=== PATIENT | male | born 1955 | race Caucasian/White ===

== ENCOUNTER → 2018-05-01 13:34 | Outpatient (CLI) | payer OTHER, SELFPAY ==
[2018-05-01 14:23] LABS: Uric Acid 8.3 mg/dL (3.5-8.5)
[2018-05-01 14:24] LABS: C-Reactive Protein Quant < 0.5 mg/dL (<1.0); Rheumatoid Factor < 8.6 IU/mL (<12.0)
[2018-05-01 14:29] LABS: Erythrocyte Sedimentation Rate 5 MM/HR (0-15)
[2018-05-04 11:38] LABS: HLA B27 NEGATIVE (Negative)
[2018-05-05 18:39] LABS: ANA Screen, IFA Negative (Negative)
== END ==
PROVIDERS: PCP Family Medicine; Visit Provider Podiatrist
DX: S93.601A Unspecified sprain of right foot, initial encounter (principal)
CPT/HCPCS: 36415; 84550; 85651; 86038; 86140; 86430; 86812

== ENCOUNTER 2019-07-28 07:39 | Day surgery (SDC) | payer MEDICARE, OTHER, SELFPAY ==
--- NOTE | 2019-07-27 19:35 | PM.PREOP ---
Pre-operative Note Interval Note History & Physical reviewed/Exam performed by Physician: Yes Changes to H&P: No
--- NOTE | 2019-07-28 07:25 | PM.OP.1 ---
Operative Date/Time/Diagnoses Date of procedure: 07/28/19 Time of procedure: 08:45 Procedure & Clinicians Procedure: Preoperative diagnoses: 1. Right complex surgery with ppossible use of capsular dye. 2. Mature or advanced nuclear sclerotic and cortical cataract with poor visibility of the anterior capsule increasing surgical risks of complications. Postoperative diagnoses: 1. Complex surgery without use of capsular dye, [2. Placement of a posterior chamber intraocular lens implant.] 3. Previous retinal detachment. 4. Previous posteriorvitrectomy. 5. hypertension Surgeon: Layla Vega MD Complications: none Specimen: None Implant: +16.5 Blood loss: None Anesthesia: Retrobulbar with monitored standby. Description of procedure: Dictated by: Layla Vega MD Post operative diagnoses: 1. Right cataract removed with phacoemulsification and placement of a posterior chamber intraocular lens. Procedure: Phacoemulsification with posterior chamber intraocular lens implant Surgeon: Layla Vega MD Blood loss: None Anesthesia: Retrobulbar with monitored standby Description of procedure: Patient has presented with decreased vision due to cataract which is affecting activities of daily living. has advanced cataract which formed rapidly after posterior vitrectomy for complicated retinal detachment with macula off status. He has high-risk characteristics for complications and may need capsular dye. The patient wants surgery to improve vision. The patient was taken to the operating room and given IV sedation. A retrobulbar block consisting of 6 cc of 2% xylocaine without epinephrine mixed half and half with 0.5% Marcaine with 1 cc of hyaluronidase added is placed between the medial and lateral 1/3 of the inferior orbital rim. Lid akinesia is obtain with 1% xylocaine with epinephrine infiltrated along the lid margin. The eye is manually massaged for 30 sec, prepped using Betadine solution, and draped in the usual sterile fashion. Temporal approach was made, a 1 mm side-port incision was performed 90 degrees from the planned corneal wound. Phenylephrine 1.5% mixed with 1% xylocaine 0.2 cc was placed into the anterior chamber. No capsular dye was needed.Viscoat followed by Allison was then placed. A 2.6 mm clear incision with a 2.6 mm blade was placed. A 360 degree capsulorrhexis style capsulotomy was then performed with a cystitome needle on a Healon. Hydrodelineation and hydrodissection were performed. The phacoemulsification unit is introduced, and sculpting used to groove the central lens. It is then removed in chopping mode. Epi nucleus is removed with epinuclear mode and irrigation aspiration was used to remove the peripheral cortex. The posterior capsule is polished. The intraocular lens is selected, inspected, power confirmed, and placed in the posterior chamber. The pupil was constricted with Miostat. The wound was stromally hydrated and tested for leaks, there was none and was left sutureless. Vigamox 0.1 cc was placed into the anterior chamber. Kenalog 0.2 cc was placed in the superior subconjunctival space. A drop of antibiotic and was placed and the eye was patched and shielded. The patient was stable and returned to the recovery room in excellent condition. Dictated by: Layla Vega MD Copy to: [facility]
[2019-07-28] MEDS: PROPARACAINE 0.5% OPHTH SOL 2 DROPS EYE-OP (08:08)
[2019-07-28] MEDS: CATARACT EYE COMPOUND (10 DROPS/SYRINGE) 3 DROPS EYE-OP ×2 (08:11→08:16)
[2019-07-28 08:13] VITALS: BP 137/96; PULSE 60; RESP 14; TEMP 36.3; O2SAT 98
[2019-07-28 08:23] VITALS: BMI 26.0
[2019-07-28] MEDS: MOXIFLOXACIN INJ 5 MG/ML VIAL EYE-OP (09:36)
[2019-07-28] MEDS: PHENYLEPHRINE/LIDOCAINE VIAL (OR) 0.2 ML EYE-OP (09:36)
[2019-07-28] MEDS: CHONDROIDTIN/SOD HYALURONATE 1.05 ML SYRINGE INTRAOCULA (09:37)
[2019-07-28] MEDS: TRIAMCINOLONE 50 MG/5 ML VIAL INJ (09:37)
[2019-07-28] MEDS: HYALURONATE SODIUM 10 MG/ML SYRINGE INJ (09:38)
[2019-07-28] MEDS: LIDOCAINE 2% 4 ML, BUPIVACAINE 0.5% (PF) 4 ML, HYALURONIDASE 150 UNIT INJ (09:39)
[2019-07-28] MEDS: ERYTHROMYCIN OPHTH 1 GM OINT 1 APPLIC EYE-RIGHT (09:39)
[2019-07-28] MEDS: BALANCED SALT IRRIG SOLN NO.2 500 ML, EPINEPHrine 1 MG IRR (09:40)
[2019-07-28 10:05] VITALS: BP 151/105; PULSE 62; RESP 15; TEMP 36.3; O2SAT 99
--- NOTE | 2019-07-28 11:09 | SUR.PHASEII ---
1006 late entry BP/VS shown to Dr. Corrales. She confirmed with the patient that he had not taken his BP med today. Since it is not that much higher than the pre-op level, she said that she was ok with him going home and taking his BP med. The discussion took place in front the patient and he acknowled hearing it.
== END 2019-07-28 10:16 | disposition home or self-care (01) ==
LOC: OR 07:40
PROVIDERS: Visit Provider Ophthalmology
PROC: (CPT 66984; principal; 2019-07-28 08:45)
DX: H25.811 Combined forms of age-related cataract, right eye (principal); I10 Essential (primary) hypertension
CPT/HCPCS: 66984; J0171; J2250; J2704; J3010; J3301; J3470

== ENCOUNTER 2019-10-04 15:44 | Emergency (ER) | payer MEDICARE, OTHER, SELFPAY ==
[2019-10-04 15:48] VITALS: BP 148/93; PULSE 74; RESP 20; TEMP 36.2; O2SAT 96
--- NOTE | 2019-10-04 17:23 | DI.CT.S_ITS ---
PROCEDURE: CT HEAD/BRAIN WO CON INDICATIONS: fall/head injury TECHNIQUE: Noncontrast 4.5 mm thick angled axial sections acquired from the foramen magnum to the vertex, with coronal and sagittal reformats. For radiation dose reduction, the following was used: automated exposure control, adjustment of mA and/or kV according to patient size. COMPARISON: None. FINDINGS: Image quality: Excellent. CSF spaces: Basal cisterns are patent. No extra-axial fluid collections. The ventricles are symmetric in size and shape. Brain: No intracranial bleeds or masses. There is cerebral volume loss for age, with resultant ventricular and sulcal prominence. There are periventricular and deep white matter chronic small vessel ischemic changes. There is intracranial internal carotid artery atherosclerosis. Skull and face: There is a scalp hematoma seen involving the right parietal region. No underlying calvarial fracture is seen. Calvarium and visualized facial bones appear intact, without suspicious lesions. Sinuses: Visualized sinuses and mastoids are clear. IMPRESSION: Right parietal scalp hematoma. No displaced calvarial fracture can be seen. No acute intracranial hemorrhage is seen. No acute intracranial process is seen. Dictated by: Johann Jean M.D. on 10/04/2019 at 17:06 Approved by: Johann Jean M.D. on 10/04/2019 at 17:07
[2019-10-04 17:41] LABS: Add Manual Diff / Slide Review NO; Basophils Absolute Auto 100 /uL (0-100); Basophils Percent Auto 0.4 % (0-2); Eosinophils Absolute Auto 0 /uL (0-450); Eosinophils Percent Auto 0.3 % (2-4); Hematocrit 41.7 % (41-53); Hemoglobin 14.6 g/dL (13.5-17.5); Lymphocytes Absolute Auto 1300 /uL (1100-4500); Lymphocytes Percent Auto 9.2 % (25-40); Mean Corpuscular Hemoglobin 31.6 PG (26-34); Mean Corpuscular Volume 90.2 fL (80-100); Monocytes Absolute Auto 900 /uL (0-900); Monocytes Percent Auto 6.2 % (3-14); Neutrophils Absolute Auto 12300 /uL (1500-7000); Neutrophils Percent Auto 83.9 % (50-75); Platelet Count 246 X10^3/uL (150-400); Red Blood Cell Count 4.62 X10^6/uL (4.5-5.9); Red Cell Distribution Width 13.1 % (11.6-14.8); White Blood Cell Count 14.7 X10^3/uL (4.5-11.0)
--- NOTE | 2019-10-04 17:46 | ED_ITS ---
HPI - Fall General Chief Complaint: Fall Stated Complaint: LACERATION TOP OF RIGHT SIDE OF HEAD THINKS BLACKE Time Seen by Provider: 10/04/19 16:24 Source: patient Mode of arrival: Ambulatory Limitations: no limitations History of Present Illness HPI Narrative: Patient comes emergency department complaining of headache and head injury after falling while coming down ladder today. Patient states he has had a ?sinus infection? for the last 10 days and he actually thought that he felt a little better today. He states that he had been doing some work in the attic of his garage was coming down the swelling down ladder when he believes he he feel dizzy and fell. Patient states he does not remember the incident exactly. He thinks he was about longterm down the ladder when he fell. He states that he believes he hit the concrete floor of his garage with his head and passed out. The patient states that when he woke up, he felt somewhat ?woozy? and had a headache. He noticed he had bleeding from the posterior right side of his head, as well. Patient states he has felt somewhat nauseated but did not vomit. His states that when she came home, she found a pool of blood on the garage floor and found the patient wandering aimlessly in the house. The patient seemed to be oriented, however. He denies any focal pain, other than his headache and a pain in the sacral area. No other injuries as far as patient can't. No focal neurologic deficits. Patient states he does not have any prior history of syncope. He states he generally strong and healthy and takes only lisinopril for blood pressure. He denies any chest pain or shortness of breath. No known cardiac issues. No other complaints at this time. Related Data Home Medications Medication Instructions Recorded Confirmed Cialis 1 tab PO PRN PRN 10/04/19 10/04/19 lisinopril 10 mg PO DAILY 10/04/19 10/04/19 Previous Rx's Medication Instructions Recorded hydrocodone-acetaminophen 1 tab PO Q4H PRN #20 tab 10/04/19 ondansetron 4 mg PO Q6H PRN #20 tab 10/04/19 Allergies Allergy/AdvReac Type Severity Reaction Status Date / Time amoxicillin [AMOXICILLIN] AdvReac Unknown GI distress Verified 07/28/19 08:06 Review of Systems Review of Systems ROS Unobtainable: All systems reviewed & are unremarkable except as noted in HPI and below Constitutional Constitutional: Denies chills, Denies fatigue, Denies fever(s), Denies frequent falls, Reports headache(s) (With scalp laceration), Denies lethargy and Denies weakness Eyes Eyes: Denies change in vision, Denies eye discharge, Denies irritation and Denies loss of vision ENT Ears, Nose, Mouth, and Throat: Denies change in voice, Denies dizziness, Reports headache(s) (With scalp laceration), Denies neck pain, Denies sore throat and Denies throat swelling Cardiovascular Cardiovascular: Denies chest pain, Denies irregular heart rhythm, Denies lightheadedness, Denies palpitations, Denies dyspnea, Denies dyspnea on exertion and Denies orthopnea Respiratory Respiratory: Denies cough, Denies dyspnea, Denies dyspnea on exertion and Denies wheezing Gastrointestinal Gastrointestinal: Denies abdominal pain, Denies change in bowel habits, Denies diarrhea, Reports nausea and Denies vomiting Genitourinary Genitourinary: Denies hematuria, Denies flank pain, Denies urinary incontinence and Denies urinary urgency Musculoskeletal Musculoskeletal: Denies back pain, Denies muscle weakness, Denies neck pain, Denies numbness and Denies tingling Integumentary/Breasts Skin/Breast: Denies pruritus, Denies erythema, Denies rash and Denies wounds Neurologic Neurologic: Denies behavioral changes, Denies confusion, Denies dizziness, Denies frequent falls, Reports headache(s) (With scalp laceration), Denies loss of vision, Denies numbness, Denies tingling and Denies weakness Psychiatric Psychiatric: Denies anxiety, Denies behavioral changes, Denies confusion, Denies depression, Denies homicidal ideation and Denies suicidal ideation Endocrine Endocrine: Denies fatigue, Denies flushing and Denies palpitations Hematologic/Lymphatic Hematologic/Lymphatic: Denies easy bruising Allergic/Immunologic Allergic/Immunologic: Denies urticaria, Denies throat swelling and Denies wheezing Patient History Medical History Hypertension (Acute) Surgical History (Updated 07/28/19 @ 08:02 by Melonie Hunter RN) H/O shoulder surgery (Acute) Social History household members: spouse Smoking Status: Never smoker alcohol intake: current Smoking Status: Never smoker alcohol intake frequency: 0-2 drinks per day Substance Use Type: does not use Exam Initial Vital Signs Initial Vital Signs: Vital Signs Temperature 97.2 F L 10/04/19 15:48 Pulse Rate 74 10/04/19 15:48 Respiratory Rate 20 10/04/19 15:48 Blood Pressure 148/93 H 10/04/19 15:48 Pulse Oximetry 96 10/04/19 15:48 Const General: cooperative and well developed Nutritional Appearance: well nourished Orientation: alert, awake, oriented x3 and not confused HENMT Head: normocephalic and hematoma (6 x 8 cm right parietal area, with 2 overlying lacerations.) Ears: external ears normal Nose: external nose normal and No nasal discharge Face and sinus: sinuses nontender, face symmetric, no sinus tenderness and No dry mucous membranes Mouth: oral mucosae normal and moist mucous membranes Teeth and gingiva: dentition normal Eyes General: appearance normal, both eyes and all related structures Eyelids: eyelids normal Conjunctivae: conjunctivae normal Sclera: sclerae normal Pupils: PERRL EOM: EOM intact bilaterally Neck Neck: normal visual inspection, trachea midline, No lymphadenopathy, No midline deformity and No JVD Lymphatic: No lymphedema Chest Chest: normal inspection of the chest Resp Effort & Inspection: normal respiratory effort, able to speak in complete sentences, no respiratory distress and no use of accessory muscles Auscultation: clear to auscultation bilaterally, no rales, no rhonchi and no wheezes Cardio Rate: regular rate Rhythm: regular rhythm Heart Sounds: no click, no gallops, no murmurs and no rubs Pulses: normal peripheral pulses GI Inspection: non-distended Palpation: soft, no hepatosplenomegaly, No guarding, No pulsatile mass and No tender Back/Spine/Pelvis Back: No CVA tenderness Cervical Spine: cervical ROM normal and No pain with cervical ROM Thoracic/Lumbar Spine: thoracic and lumbar spine normal to inspection Skin General: no rashes or lesions noted, No jaundice and No petechiae Other: Patient has 2 vertical lacerations overlying the scalp hematoma, as noted above. One is 3.5 cm in length and the other is 2 cm in length. Neuro General: alert, oriented x3, gait normal and no focal motor deficits Speech: speech normal Extrem General: full ROM, no clubbing, cyanosis or edema, no pedal edema and no calf tenderness Psych Appearance: well kempt Mental Status: mental status grossly normal Attitude: cooperative Thought Content: normal and suicidality Judgment: judgment good Procedures Laceration Repair Laceration 1: Site: scalp Side (If applicable): right Size (cm): 3.5 Description: irregular Depth: simple, single layer Local Anesthetic: lidocaine 2% Amount of anesthesia used (mL): 8 Pre-repair: wound explored, irrigated extensively and deep structures intact Skin layer closed with: cecelia Number of sutures: 9 Laceration 2: Site: scalp Side (If applicable): right Size (cm): 3.5 Description: irregular Depth: simple, single layer Local Anesthetic: lidocaine 2% Amount of anesthesia used (mL): 8 Pre-repair: wound explored, irrigated extensively and deep structures intact Skin layer closed with: cecelia Number of sutures: 9 Course Course Course Narrative: Patient was worked up with labs, EKG, and head CT. He was given a L of 0.9 normal saline and Zofran. Labs and CT were unremarkable, as was EKG. The patient's laceration was anesthetized and repaired, as above. Patient was found to be feeling somewhat better and I felt he was stable for discharge home. We've discussed home management of symptoms, as well as the usual indications for return. Orders Ordered: Discontinued Medications Hydromorphone HCl (Dilaudid) 0.5 mg IV NOW ONE Stop: 10/04/19 18:13 Last Admin: 10/04/19 18:16 Dose: 0.5 mg Documented by: SCANTYSON Sodium Chloride (Normal Saline 0.9%) 1,000 mls @ 1,000 mls/hr IV BOLUS ONE Stop: 10/04/19 18:22 Last Infusion: 10/04/19 19:36 Dose: 0 mls/hr Documented by: Admin: 10/04/19 18:16 Dose: 1,000 mls/hr Documented by: SCANTYSON Lidocaine/Epinephrine (Xylocaine 2% W/Epi) 20 ml INJ INTRA-OP ONE Stop: 10/04/19 18:09 Last Admin: 10/04/19 18:16 Dose: 20 ml Documented by: YOUNG Ondansetron HCl (Zofran) 4 mg IV NOW ONE Stop: 10/04/19 17:24 Last Admin: 10/04/19 18:16 Dose: 4 mg Documented by: YOUNG Vital Signs Vital signs: Vital Signs - 8 hr 10/04/19 15:48 Temperature 97.2 F L Pulse Rate 74 Respiratory Rate 20 Blood Pressure 148/93 H Pulse Oximetry 96 MDM - Fall Medical Records Attestation: I reviewed the patient's medical records. Lab Data Attestation: I reviewed the patient's lab results. Result diagrams: 10/04/19 17:35 10/04/19 17:35 Labs: Lab Results 10/04/19 10/04/19 10/04/19 Range/Units 17:35 17:35 17:35 WBC 14.7 H (4.5-11.0) X10^3/uL RBC 4.62 (4.5-5.9) X10^6/uL Hgb 14.6 (13.5-17.5) g/dL Hct 41.7 (41-53) % MCV 90.2 (80-100) fL MCH 31.6 (26-34) PG MCHC 35.0 (30-36) % RDW 13.1 (11.6-14.8) % Plt Count 246 (150-400) X10^3/uL Neut % (Auto) 83.9 H (50-75) % Lymph % (Auto) 9.2 L (25-40) % [place] % (Auto) 6.2 (3-14) % Eos % (Auto) 0.3 L (2-4) % Baso % (Auto) 0.4 (0-2) % Neut # (Auto) 45555 H (2191-1395) /uL Lymph # (Auto) 1300 (3391-6845) /uL [place] # (Auto) 900 (0-900) /uL Eos # (Auto) 0 (0-450) /uL Baso # (Auto) 100 (0-100) /uL PT 12.2 (10.1-12.7) SECONDS INR 1.1 (0.9-1.3) Sodium 138 (137-145) mmol/L Potassium 3.7 (3.4-5.1) mmol/L Chloride 104 (98-107) mmol/L Carbon Dioxide 27 (22-32) mmol/L BUN 16 (9-20) mg/dL Creatinine 1.00 (0.66-1.25) mg/dL Estimated GFR > 60.0 (>60) mL/min BUN/Creatinine Ratio 16.0 (6-22) Glucose 104 (80-110) mg/dL Calcium 9.4 (8.4-10.2) mg/dL Total Bilirubin 0.5 (0.2-1.3) mg/dL AST 38 (17-59) IU/L ALT 31 (<50) IU/L Alkaline Phosphatase 102 (38-126) U/L Total Creatine Kinase 347 H (55-170) U/L CK-MB (CK-2) 6.21 H (<2.37) ng/mL CK-MB (CK-2) Rel Index 1.8 (1.5-5.0) % Troponin I < 0.012 (0.01-0.034) ng/mL Total Protein 7.5 (6.3-8.2) g/dL Albumin 4.3 (3.5-5.0) g/dL Globulin 3.2 (1.7-4.1) g/dL Albumin/Globulin Ratio 1.3 (1.0-2.8) Imaging Data CT scan - head: Radiologist's Impression: PROCEDURE: CT HEAD/BRAIN WO CON INDICATIONS: fall/head injury TECHNIQUE: Noncontrast 4.5 mm thick angled axial sections acquired from the foramen magnum to the vertex, with coronal and sagittal reformats. For radiation dose reduction, the following was used: automated exposure control, adjustment of mA and/or kV according to patient size. COMPARISON: None. FINDINGS: Image quality: Excellent. CSF spaces: Basal cisterns are patent. No extra-axial fluid collections. The ventricles are symmetric in size and shape. Brain: No intracranial bleeds or masses. There is cerebral volume loss for age, with resultant ventricular and sulcal prominence. There are periventricular and deep white matter chronic small vessel ischemic changes. There is intracranial internal carotid artery atherosclerosis. Skull and face: There is a scalp hematoma seen involving the right parietal region. No underlying calvarial fracture is seen. Calvarium and visualized facial bones appear intact, without suspicious lesions. Sinuses: Visualized sinuses and mastoids are clear. IMPRESSION: Right parietal scalp hematoma. No displaced calvarial fracture can be seen. No acute intracranial hemorrhage is seen. No acute intracranial process is seen. Dictated by: Johann Jean M.D. on 10/04/2019 at 17:06 Approved by: Johann Jean M.D. on 10/04/2019 at 17:07 ECG Data Attestation: I personally reviewed and interpreted this ECG as follows: Interpretation: Twelve lead EKG performed October 04, 2019 at 4:07 p.m., as follows: Regular ventricular rhythm with a rate of 71 beats per minute WI interval 181 milliseconds QRS duration 86 millisecond QTC interval [address] T wave changes Interpretation: Normal sinus rhythm; no signs of acute ischemia as interpreted by ED MD. Discharge Plan Departure Patient Disposition: Home Clinical Impression: Concussion with loss of consciousness Qualifiers: Encounter type: initial encounter Qualified Code(s): S06.0X9A - Concussion with loss of consciousness of unspecified duration, initial encounter Laceration of scalp Qualifiers: Encounter type: initial encounter Qualified Code(s): S01.01XA - Laceration without foreign body of scalp, initial encounter Discharge Date/Time: 10/04/19 19:45 Instructions: DI for Concussion, DI for Laceration Repair -- Cecelia, DI for Postconcussion Syndrome Activity Restrictions/Additional Instructions: Your CT scan on labs do not show an emergent cause of your fall today, and most likely, the loss of consciousness was secondary to your head hitting the concrete. The CT scan does not show any bleeding in your brain or fractures of your skull. Your lacerations have been repaired with 18 cecelia, which will need to be taken out in about 10 days. You may see your primary care physician or the Urgent Care/walk-in for this. You may allow water and soap to run over the wound, but do not rub, scrub, or immerse the wound until the cecelia are removed. If your wound splits apart and seems ?mushy? after having dried and scabbed over, or if you develop increasing redness and swelling spreading away from the wound that was not previously there, please have the wound rechecked, as these could be signs of infection. You have most certainly sustained a concussion from your head injury. This may cause you to have headaches, nausea, increased drowsiness, and some sense of imbalance over the course of the next 1-2 weeks. However, if your symptoms seemed to be progressing and becoming increasingly severe instead of improving, please seek medical re-evaluation. Prescriptions: New hydrocodone-acetaminophen 5-325 mg tablet 1 tab PO Q4H PRN (Reason: pain) Qty: 20 RF: 0 ondansetron 4 mg tablet,disintegrating 4 mg PO Q6H PRN (Reason: nausea and vomiting) Qty: 20 RF: 0 No Action lisinopril 10 mg tablet 10 mg PO DAILY RF: 0 Cialis 1 tab PO PRN PRN (Reason: Erectile Dysfunction) RF: 0 Referrals: [facility] [Provider Group]
[2019-10-04 17:49] LABS: INR 1.1 (0.9-1.3); Prothrombin Time 12.2 SECONDS (10.1-12.7)
[2019-10-04 17:53] LABS: Alanine Aminotransferase 31 IU/L (<50); Albumin 4.3 g/dL (3.5-5.0); Albumin Globulin Ratio 1.3 (1.0-2.8); Alkaline Phosphatase 102 U/L (38-126); Aspartate Aminotransferase 38 IU/L (17-59); Bilirubin Total 0.5 mg/dL (0.2-1.3); Blood Urea Nitrogen 16 mg/dL (9-20); Calcium 9.4 mg/dL (8.4-10.2); Carbon Dioxide 27 mmol/L (22-32); Chloride 104 mmol/L (98-107); Creatine Kinase 347 U/L (55-170); Estimated Glomerular Filt Rate > 60.0 mL/min (>60); Globulin 3.2 g/dL (1.7-4.1); Glucose 104 mg/dL (80-110); HEMOLYSIS < 15 (0-50); Potassium 3.7 mmol/L (3.4-5.1); Sodium 138 mmol/L (137-145); Total Protein 7.5 g/dL (6.3-8.2)
[2019-10-04 18:04] LABS: Troponin I < 0.012 ng/mL (0.01-0.034)
[2019-10-04 18:08] LABS: CKMB % Relative Index 1.8 % (1.5-5.0); Creatine Kinase MB 6.21 ng/mL (<2.37)
[2019-10-04] MEDS: SODIUM CHLORIDE 0.9% 1,000 ML 1000 ML IV (18:16)
[2019-10-04] MEDS: ONDANSETRON 4 MG/2 ML INJ IV (18:16)
[2019-10-04] MEDS: LIDOCAINE 2% W/EPI INJ 20 ML INJ (18:16)
[2019-10-04] MEDS: HYDROMORPHONE 0.5 MG INJ IV (18:16)
[2019-10-04 19:45] VITALS: BP 144/90; PULSE 82; RESP 14; O2SAT 98
== END 2019-10-04 19:45 | disposition home or self-care (01) ==
PROVIDERS: Emergency Provider Emergency Medicine
DX: S06.0X9A Concussion with loss of consciousness of unspecified duration, initial encounter (principal); S01.01XA Laceration without foreign body of scalp, initial encounter; I10 Essential (primary) hypertension; W11.XXXA Fall on and from ladder, initial encounter
CPT/HCPCS: 12002; 36415; 70450; 80053; 82550; 82553; 84484; 85025; 85610; 93005; 96361; 96374; 96375; 99284; 99285; J1170; J2405

== ENCOUNTER → 2020-05-24 11:29 | Outpatient (CLI) | payer MEDICARE, OTHER, SELFPAY ==
--- NOTE | 2020-05-24 | DI.RAD.S_ITS ---
PROCEDURE: XR CHEST 2V INDICATIONS: dyspnea TECHNIQUE: 2 views of the chest were acquired. COMPARISON: None. FINDINGS: Surgical changes and devices: None. Lungs and pleura: Lungs are clear. No pleural effusions or pneumothorax. Mediastinum: Mediastinal contours are normal. Heart size is normal. Bones and chest wall: No suspicious bony abnormalities. Soft tissues appear unremarkable. IMPRESSION: Normal for age, source of current dyspnea symptoms is not seen. Dictated by: Og Kamara M.D. on 05/24/2020 at 12:18 Approved by: Og Kamara M.D. on 05/24/2020 at 12:19
== END ==
PROVIDERS: PCP Student in an Organized Health Care Education/Training Program; Referring Provider Student in an Organized Health Care Education/Training Program; Visit Provider Student in an Organized Health Care Education/Training Program
DX: R06.00 Dyspnea, unspecified (principal)
CPT/HCPCS: 71046

== ENCOUNTER → 2020-06-24 11:16 | Outpatient (CLI) | payer MEDICARE, OTHER, SELFPAY ==
[2020-06-26 09:09] LABS: COVID19 Sendout Not Detected (Not Detect)
== END ==
PROVIDERS: PCP Student in an Organized Health Care Education/Training Program; Visit Provider Nurse Practitioner
DX: Z11.59 Encounter for screening for other viral diseases (principal)
CPT/HCPCS: 87635

== ENCOUNTER → 2020-06-27 09:34 | Outpatient (CLI) | payer MEDICARE, OTHER, SELFPAY ==
--- NOTE | 2020-06-27 18:31 | DI.NM.S_ITS ---
DATE OF SERVICE: 06/27/2020 PROCEDURE: Exercise perfusion study. INDICATIONS: Shortness of breath, chest tightness. RADIOPHARMACEUTICAL: 25.0 millicurie technetium-99m Myoview IV was injected at stress and 11.8 millicurie technetium-99m Myoview IV was injected at rest. CARDIAC STRESS: The patient underwent exercise perfusion study under the supervision of an attending staff. The patient walked on Dave protocol for 12 minutes 04 seconds and achieved 103 percent of target heart rate. There was hypertensive blood pressure response. Baseline blood pressure 132/86 and peak blood pressure 180/110. The patient achieved 103 percent of target heart rate, functional aerobic impairment -47 percent and 12.8 METs of workload. No anginal symptoms. Baseline rhythm was sinus. During stress, no convincing ischemic changes. There were some PACs, PVCs and artifacts without any significant sustained arrhythmias. RAW DATA: There is increased subdiaphragmatic activity. GATED STUDY: Resting LV ejection fraction 69 and stress LV ejection fraction 78 percent without any obvious wall motion abnormalities. Resting end-diastolic volume 105 mL. TID ratio 0.79, which is within normal limits. Lung/heart ratio 0.35, which is within normal limits. MYOCARDIAL PERFUSION: Stress supine and resting supine images reveal a small size, mildly decreased perfusion of inferior wall and inferior apex which got resolved during prone images, suggestive of diaphragmatic tissue attenuation artifact. CONCLUSION: I will call this study a normal myocardial perfusion study with evidence of diaphragmatic tissue attenuation artifact, which got resolved during prone images. Excellent exercise tolerance. He walked on Dave protocol for about 12 minutes and 04 seconds. Achieved 12.8 METs of workload and functional aerobic impairment -47 percent. Hypertensive blood pressure response. No significant sustained arrhythmias. Overall this is a low risk myocardial perfusion scan. Markos Atkinson - SANTANA/jaz/ricardo doc#: [id number]/job#: [id number] dd: 06/27/2020 16:41:00 dt: 06/27/2020 18:24:00 DICTATING MD/COPIES TO: Mecca Calderon MD COPIES MNE: CHRISTINA;
== END ==
PROVIDERS: PCP Student in an Organized Health Care Education/Training Program; Referring Provider Student in an Organized Health Care Education/Training Program; Visit Provider Student in an Organized Health Care Education/Training Program
DX: R07.89 Other chest pain (principal); R06.02 Shortness of breath; R06.00 Dyspnea, unspecified
CPT/HCPCS: 78452; 93017; A9502